=== PATIENT | male | born 1960 | race Caucasian/White ===

== ENCOUNTER 2023-11-01 09:03 | Emergency (ER) | payer OTHER, SELFPAY ==
[2023-11-01 09:11] VITALS: BP 185/103; BMI 25.8
[2023-11-01 09:12] VITALS: BP 185/103
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
[2023-11-01] MEDS: TYLENOL 650 MG PO (09:33)
[2023-11-01 10:00] VITALS: BP 157/101
[2023-11-01] MEDS: ADACEL 0.5 ML IM (10:32)
[2023-11-01 11:00] VITALS: BP 131/81
[2023-11-01 12:54] VITALS: BP 130/81
== END 2023-11-01 12:57 | disposition home or self-care (01) ==
LOC: EMR 09:03
PROVIDERS: EMERGENCY PHYSICIAN Emergency Medicine; FAMILY PHYSICIAN Internal Medicine
DX: S09.90XA Unspecified injury of head, initial encounter (principal); S00.81XA Abrasion of other part of head, initial encounter; S40.812A Abrasion of left upper arm, initial encounter; S40.811A Abrasion of right upper arm, initial encounter; W19.XXXA Unspecified fall, initial encounter; Y93.55 Activity, bike riding; Z23 Encounter for immunization; I10 Essential (primary) hypertension
CPT/HCPCS: 99284; 90471; 70450; 72125; 90715